=== PATIENT | female | born 1980 | race Caucasian/White ===

== ENCOUNTER 2018-04-05 17:57 | Emergency (ER) | payer OTHER ==
[~2018-04-05] VITALS: Ht 170.2 cm; Wt 81.6 kg
[2018-04-05 20:17] VITALS: BP 139/87
[2018-04-05] MEDS ORDERED: FIORINAL 50-321 EACH PO (20:25)
== END 2018-04-05 20:37 | disposition home or self-care (01) ==
LOC: ER 17:57
DX: G44.221 Chronic tension-type headache, intractable (principal); G44.89 Other headache syndrome
CPT/HCPCS: 99282